=== PATIENT | female | born 1940 | race Caucasian/White ===

== ENCOUNTER → 2017-12-07 | Emergency (ER) | payer OTHER ==
[~2017-12-07] VITALS: Ht 154.9 cm; Wt 63.5 kg
[~2017-12-07] MED LIST: GLIMEPIRIDE1 MG; JANUMET 50-1,01 EACH; LANSOPRAZOLE30 MG; LOSARTAN POTASS25 MG; PEPCID40 MG; PROBIOTIC1 EAC2; TIGAN300 MG
== END | disposition home or self-care (01) ==
LOC: ER 13:45
DX: B34.9 Viral infection, unspecified (principal); J11.1 Influenza due to unidentified influenza virus with other respiratory manifestations